=== PATIENT | male | born 1990 | race Caucasian/White ===

== ENCOUNTER 2021-02-08 17:51 | Emergency (ER) | payer SELFPAY ==
[~2021-02-08] VITALS: Ht 167.6 cm; Wt 63.5 kg
[2021-02-08 18:26] VITALS: BP_SYST 160
[2021-02-08 19:35] LABS: BILIRUBIN,URINE NEGATIVE (NEGATIVE); BLOOD, URINE 2+ (NEGATIVE); COLOR,URINE YELLOW (YELLOW); GLUCOSE,URINE 3+ (NEGATIVE); KETONES,URINE NEGATIVE (NEGATIVE); NITRITE, URINE NEGATIVE (NEGATIVE); PROTEIN URINE TRACE (NEGATIVE); UROBILINOGEN,URINE 0.2 (0.2-1.0)
[2021-02-08 19:43] LABS: CLARITY/URINE HAZY (CLEAR); LEUKOCYTE ESTERASE ,URINE 2+ (NEGATIVE)
[2021-02-08 19:45] LABS: BACTERIA,URINE FEW /HPF (None Seen); MUCUS,URINE None Seen /LPF (None Seen); RBC,URINE 0-3 /HPF (0-3); WBC,URINE 20-50 /HPF (0-3)
[2021-02-08] MEDS ORDERED: cefTRIAXone 500 MG in LIDOCAINE 1%, 20 ML MDV 1 ML IM ONE (20:00)
[2021-02-08] MEDS ORDERED: AZITHROMYCIN 250 MG TABLET PO ONE (20:00)
[2021-02-08] MEDS ORDERED: DOXY100C2 PO (20:05)
[2021-02-08 20:13] VITALS: BP_SYST 160
== END 2021-02-08 20:10 ==
LOC: SED 17:51
DX: N39.0 Urinary tract infection, site not specified (principal); E11.9 Type 2 diabetes mellitus without complications
CPT/HCPCS: 81000; 87086; 87491; 87591; 96372; 99283; J0696; Q0144